=== PATIENT | female | born 1995 | race Caucasian/White ===

== ENCOUNTER 2016-11-05 08:59 | Day surgery (SDC) | payer OTHER ==
[2016-11-03 10:24] LABS: BASOPHIL % 0.3 % (0-2); PLATELET COUNT 239 x10^3mcL (130-400); RED CELL DISTRIBUTION WIDTH 13.4 % (11.5-14.5)
[2016-11-03 10:26] LABS: ALBUMIN 3.5 g/dL (3.4-5.0); ALKALINE PHOSPHATASE 107 U/L (46-116); ALT/SGPT 30 U/L (14-59); AST/SGOT 14 U/L (15-37); BILIRUBIN TOTAL 0.34 mg/dL (0.20-1.00); CALCIUM 8.6 mg/dL (8.5-10.1); CHLORIDE SERUM 106 mmol/L (98-107); CHOLESTEROL 142 mg/dL (<200); CREATININE SERUM 0.8 mg/dL (0.6-1.0); GFR1 > 60 mL/min; GLUCOSE SERUM 106 mg/dL (74-106); LACTIC DEHYDROGENASE (LDH) 166 U/L (100-190); PHOSPHOROUS 3.6 mg/dL (2.5-4.9); POTASSIUM SERUM 4.1 mmol/L (3.5-5.1); SODIUM SERUM 141 mmol/L (136-145); TOTAL PROTEIN, SERUM 7.6 g/dL (6.4-8.2); URIC ACID 5.6 mg/dL (2.6-6.0)
[~2016-11-05] VITALS: Ht 170.2 cm; Wt 113.4 kg
[2016-11-05 09:06] VITALS: BP 132/84
[2016-11-05 15:45] VITALS: BP 111/65
== END 2016-11-05 15:45 | disposition home or self-care (01) ==
LOC: DS 08:59 → OR 11:00 → DS 11:00
PROVIDERS: Surgery
PROC: 0FT44ZZ Resection of Gallbladder, Percutaneous Endoscopic Approach (ICD-10-PCS; principal; 2016-11-05 11:00)
DX: K81.1 Chronic cholecystitis (principal)
CPT/HCPCS: J0330; J0690; J1170; J2250; J2405; J2704; J2710; J3010; J3490; J7120

== ENCOUNTER 2018-12-29 09:27 | Day surgery (SDC) | payer OTHER ==
[~2018-12-29] VITALS: Ht 170.2 cm; Wt 127.0 kg
[2018-12-29 09:45] VITALS: BP 119/83
[2018-12-29 16:47] VITALS: BP 103/65
== END 2018-12-29 16:35 | disposition home or self-care (01) ==
LOC: DS 09:27 → OR 12:00 → DS 12:00
DX: K43.6 Other and unspecified ventral hernia with obstruction, without gangrene (principal); E66.01 Morbid (severe) obesity due to excess calories; Z68.41 Body mass index [BMI] 40.0-44.9, adult; Z90.49 Acquired absence of other specified parts of digestive tract
CPT/HCPCS: C1781; J0330; J0690; J1170; J2405; J2704; J2710; J3010; J3490; J7120